=== PATIENT | male | born 1955 | race African-American/Black ===

== ENCOUNTER 2019-09-06 03:19 | Inpatient (IN) | payer MEDICAID ==
[~2019-09-06] VITALS: Ht 335.3 cm; Wt 93.9 kg
[~2019-09-06 03:19] MED LIST: BISA-81 PO; HYDR-519 PO; PHEN100C4 PO
[2019-09-06 04:06] LABS: MEAN CORPUSCULAR HEMOGLOBIN 29.2 pg (28.0-32.0); MEAN CORPUSCULAR VOLUME 90.1 fL (80.0-94.0); MEAN PLATELET VOLUME 8.2 fl (7.4-10.4); PLATELET 651 x1000/uL (130-400); RED BLOOD CELL COUNT 1.44 mill/uL (4.7-6.1); RED CELL DISTRIBUTION WIDTH 16.6 % (11.6-14.6)
[2019-09-06 04:09] LABS: CHLORIDE 89 mEq/L (98-107)
[2019-09-06 04:19] LABS: HEMOGLOBIN. 4.2 g/dL (14.0-18.0)
[2019-09-06] MEDS ORDERED: PANTOPRAZOLE SODIUM 40 MG/VIAL IV NR (04:30)
[2019-09-06] MEDS ORDERED: SODIUM CHLORIDE 0.9% 1000ML BAG (SEPSIS BOLUS) IV NR (04:30)
[2019-09-06] MEDS ORDERED: PIPERACILLIN/TAZOBACTAM 3.375GM/50ML PREMIX IV ONE (04:30)
[2019-09-06 04:32] LABS: INR 1.1; PROTHROMBIN TIME 11.7 sec (9.6-11.0)
[2019-09-06] MEDS ORDERED: PIPERACILLIN/TAZ 3.375G PREMIX 50 ML IV NR (05:00)
[2019-09-06 06:34] LABS: PLATELET ESTIMATE INCREASED
[2019-09-06] MEDS: AZITHROMYCIN 500 MG in DEXT 5% WATER 250 ML IV SCH (07:41)
[2019-09-06] MEDS ORDERED: ACETAMINOPHEN 325MG TABLET PO PRN (08:00)
[2019-09-06] MEDS ORDERED: ONDANSETRON HCL 4MG/2ML INJ IV PRN (08:00)
[2019-09-06] MEDS ORDERED: POTASSIUM CHLORIDE 20MEQ TABLET SR PO SCH (08:00)
[2019-09-06] MEDS: VANCOMYCIN 1 G PREMIX 200 ML IV SCH (08:35)
[2019-09-06] MEDS: SODIUM CHLORIDE 0.9% 1,000 ML IV SCH ×2 (08:36→21:20)
[2019-09-06] MEDS: CEFTRIAXONE 1 G PREMIX 50 ML IV SCH (08:49)
[2019-09-06 09:36] LABS: CLARITY URINE CLOUDY (CLEAR); COLOR URINE YELLOW (YELLOW); KETONES URINE NEGATIVE (NEGATIVE); LEUKOCYTE ESTERASE URINE 3+ (NEGATIVE); NITRITE URINE NEGATIVE (NEGATIVE); OCCULT BLOOD URINE 3+ (NEGATIVE); PROTEIN URINE 1+ (NEGATIVE); SPECIFIC GRAVITY URINE 1.012 (1.005-1.030); UROBILINOGEN URINE 0.2 E.U./dL (0.2-1.0)
[2019-09-06 11:07] LABS: TOTAL IRON BINDING CAPACITY 175 ug/dL (250-450)
[2019-09-06 11:23] LABS: FOLIC ACID (FOLATE) SERUM >20 ng/mL ng/mL (>5.38)
[2019-09-06 11:34] LABS: VITAMIN B12 SERUM 772 pg/mL (211-911)
[2019-09-06] MEDS ORDERED: IPRATROPIUM/ALBUTEROL 0.5-3(2.5)MG/3ML NEB HHN PRN (12:45)
[2019-09-06 13:18] LABS: FERRITIN 3735 ng/mL (22-322)
[2019-09-06 14:01] LABS: BG BASE EXCESS 2.2 mmol/L (-2.0-2.0); BG CARBOXYHEMOGLOBIN 0.4 % (0.5-1.5); BG DEOXYHEMOGLOBIN 0.6 % (0.0-5.0); BG FRACTION INSPIRED OXYGEN 50; BG HCO3 ACT 25.2 mmol/L (22.0-26.0); BG METHEMOGLOBIN 0.1 % (0.0-1.5); BG OXYGEN SATURATION 99.4 % (92.0-98.5); BG OXYHEMOGLOBIN 98.9 % (94.0-97.0); BG PH 7.514 (7.350-7.450); BG PO2 213.1 mmHg (75.0-100.0); BG SAMPLE SITE RIGHT RADIAL; BG TIDAL VOLUME(mL) 500 mL; BG TOTAL HEMOGLOBIN 7.2 g/dL (12.0-18.0); BG VENT MODE VENT - A/C; BG VENT RATE 14 set
[2019-09-06] MEDS: MORPHINE SULFATE 2 MG/ML CPJ (NOT FOR IM USE) IV PRN (15:53)
[2019-09-06] MEDS ORDERED: MORPHINE SULFATE 2 MG/ML CPJ (NOT FOR IM USE) IV SCH (16:00)
[2019-09-06] MEDS: IPRATROPIUM/ALBUTEROL 0.5-3(2.5)MG/3ML NEB HHN SCH (21:24)
[2019-09-07] MEDS: ACETYLCYSTEINE 100MG/ML 10% VIAL 4ML INH SCH ×2 (00:12→17:10)
[2019-09-07] MEDS: IPRATROPIUM/ALBUTEROL 0.5-3(2.5)MG/3ML NEB HHN SCH ×4 (01:48→21:07)
[2019-09-07 02:23] LABS: HEMATOCRIT 31.3 % (42.0-52.0); HEMOGLOBIN 10.6 g/dL (14.0-18.0)
[2019-09-07] MEDS: VANCOMYCIN 1 G PREMIX 200 ML IV SCH (04:30)
[2019-09-07 04:40] LABS: HEMATOCRIT. 28.8 % (42.0-52.0); HEMOGLOBIN. 9.8 g/dL (14.0-18.0); MEAN CORPUSCULAR HEMOGLOBIN 28.3 pg (28.0-32.0); MEAN CORPUSCULAR VOLUME 83.7 fL (80.0-94.0); MEAN PLATELET VOLUME 7.8 fl (7.4-10.4); PLATELET 688 x1000/uL (130-400); RED BLOOD CELL COUNT 3.44 mill/uL (4.7-6.1); RED CELL DISTRIBUTION WIDTH 16.8 % (11.6-14.6)
[2019-09-07 04:45] LABS: CHLORIDE 109 mEq/L (98-107)
[2019-09-07] MEDS: AZITHROMYCIN 500 MG in DEXT 5% WATER 250 ML IV SCH (04:45)
[2019-09-07 04:51] LABS: PHOSPHORUS 2.5 mg/dL (2.5-4.9)
[2019-09-07] MEDS: CEFTRIAXONE 1 G PREMIX 50 ML IV SCH (08:53)
[2019-09-07] MEDS: PANTOPRAZOLE SODIUM 40 MG/VIAL IV SCH (09:00)
[2019-09-07] MEDS: SODIUM CHLORIDE 0.9% 1,000 ML IV SCH (10:34)
[2019-09-07 11:12] LABS: PLATELET ESTIMATE INCREASED
[2019-09-07 14:00] VITALS: BP 149/73
[2019-09-07 14:41] VITALS: BP 149/73
[2019-09-07] MEDS ORDERED: IRON SUCROSE COMPLEX 100 MG/5 ML ML IV SCH (15:00)
[2019-09-07 16:23] VITALS: BP 134/65
[2019-09-07] MEDS: PIPERACILLIN/TAZOBACTAM 3.375 G in DEXT 5% WATER 100 ML IV SCH ×2 (16:45→21:26)
[2019-09-07 17:53] VITALS: BP 158/81
[2019-09-07] MEDS: VANCOMYCIN 750 MG PREMIX 150 ML IV SCH (18:09)
[2019-09-07 20:00] VITALS: BP 156/80
[2019-09-07 22:00] VITALS: BP 147/79
[2019-09-08] VITALS (12 sets, daily range): BP systolic 144–167; BP diastolic 69–101
[2019-09-08] MEDS: SODIUM CHLORIDE 0.9% 1,000 ML IV SCH
[2019-09-08] MEDS: IPRATROPIUM/ALBUTEROL 0.5-3(2.5)MG/3ML NEB HHN SCH ×6 (00:12→20:51)
[2019-09-08] MEDS: VANCOMYCIN 750 MG PREMIX 150 ML IV SCH ×3 (01:13→17:53)
[2019-09-08] MEDS: PIPERACILLIN/TAZOBACTAM 3.375 G in DEXT 5% WATER 100 ML IV SCH ×4 (02:58→23:18)
[2019-09-08 05:51] LABS: CHLORIDE 115 mEq/L (98-107)
[2019-09-08 06:04] LABS: PHOSPHORUS 2.6 mg/dL (2.5-4.9)
[2019-09-08 06:25] LABS: HEMATOCRIT. 29.9 % (42.0-52.0); HEMOGLOBIN. 10.2 g/dL (14.0-18.0); MEAN CORPUSCULAR VOLUME 85.4 fL (80.0-94.0); MEAN PLATELET VOLUME 7.7 fl (7.4-10.4); PLATELET 718 x1000/uL (130-400); RED CELL DISTRIBUTION WIDTH 17.3 % (11.6-14.6)
[2019-09-08] MEDS ORDERED: CEFTRIAXONE 1 G PREMIX 50 ML IV SCH (09:00)
[2019-09-08] MEDS: ACETYLCYSTEINE 100MG/ML 10% VIAL 4ML INH SCH ×2 (09:16→14:11)
[2019-09-08] MEDS: PANTOPRAZOLE SODIUM 40 MG/VIAL IV SCH (11:46)
[2019-09-08 22:53] LABS: PLATELET ESTIMATE MARKEDLY INCREASED
[2019-09-09] VITALS (11 sets, daily range): BP systolic 137–170; BP diastolic 76–97
[2019-09-09] MEDS: IPRATROPIUM/ALBUTEROL 0.5-3(2.5)MG/3ML NEB HHN SCH ×3 (01:41→20:46)
[2019-09-09] MEDS: ACETYLCYSTEINE 100MG/ML 10% VIAL 4ML INH SCH ×2 (01:42→17:01)
[2019-09-09] MEDS: VANCOMYCIN 750 MG PREMIX 150 ML IV SCH (01:44)
[2019-09-09] MEDS: PIPERACILLIN/TAZOBACTAM 3.375 G in DEXT 5% WATER 100 ML IV SCH ×4 (04:00→22:00)
[2019-09-09 06:10] LABS: HEMATOCRIT. 29.9 % (42.0-52.0); HEMOGLOBIN. 9.9 g/dL (14.0-18.0); MEAN CORPUSCULAR HEMOGLOBIN 28.6 pg (28.0-32.0); MEAN CORPUSCULAR VOLUME 86.6 fL (80.0-94.0); MEAN PLATELET VOLUME 7.7 fl (7.4-10.4); PLATELET 733 x1000/uL (130-400); RED BLOOD CELL COUNT 3.45 mill/uL (4.7-6.1); RED CELL DISTRIBUTION WIDTH 17.1 % (11.6-14.6)
[2019-09-09 06:23] LABS: CHLORIDE 120 mEq/L (98-107)
[2019-09-09 06:28] LABS: PHOSPHORUS 2.7 mg/dL (2.5-4.9)
[2019-09-09 07:56] LABS: VANCOMYCIN TROUGH 68.4 ug/mL (5.0-10.0)
[2019-09-09] MEDS: ZINC SULFATE 220 MG ( 50 ) CAPSULE PO SCH (09:41)
[2019-09-09] MEDS: DEXTROSE 5% WATER 1,000 ML IV SCH (09:41)
[2019-09-09] MEDS: FOLIC ACID 1MG TABLET PO SCH (09:41)
[2019-09-09] MEDS: PANTOPRAZOLE SODIUM 40 MG/VIAL IV SCH (09:41)
[2019-09-09] MEDS: ASCORBIC ACID 500 MG TABLET PO SCH (09:41)
[2019-09-09] MEDS: THIAMINE HCL 100MG TABLET PO SCH (09:41)
[2019-09-09 10:42] LABS: PLATELET ESTIMATE INCREASED
[2019-09-10] VITALS (12 sets, daily range): BP systolic 133–167; BP diastolic 81–114
[2019-09-10] MEDS: ACETYLCYSTEINE 100MG/ML 10% VIAL 4ML INH SCH ×3 (00:46→16:00)
[2019-09-10] MEDS: IPRATROPIUM/ALBUTEROL 0.5-3(2.5)MG/3ML NEB HHN SCH ×6 (00:46→20:10)
[2019-09-10] MEDS: DEXTROSE 5% WATER 1,000 ML IV SCH ×3 (01:33→17:19)
[2019-09-10] MEDS: MORPHINE SULFATE 2 MG/ML CPJ (NOT FOR IM USE) IV PRN (01:34)
[2019-09-10] MEDS: PIPERACILLIN/TAZOBACTAM 3.375 G in DEXT 5% WATER 100 ML IV SCH ×3 (03:02→16:52)
[2019-09-10 05:32] LABS: CHLORIDE 115 mEq/L (98-107)
[2019-09-10 05:39] LABS: HEMATOCRIT. 31.5 % (42.0-52.0); HEMOGLOBIN. 10.1 g/dL (14.0-18.0); MEAN CORPUSCULAR HEMOGLOBIN 28.2 pg (28.0-32.0); MEAN CORPUSCULAR VOLUME 87.9 fL (80.0-94.0); MEAN PLATELET VOLUME 7.7 fl (7.4-10.4); PHOSPHORUS 2.7 mg/dL (2.5-4.9); PLATELET 687 x1000/uL (130-400); RED BLOOD CELL COUNT 3.58 mill/uL (4.7-6.1); RED CELL DISTRIBUTION WIDTH 17.5 % (11.6-14.6)
[2019-09-10] MEDS: FOLIC ACID 1MG TABLET PO SCH (08:19)
[2019-09-10] MEDS: THIAMINE HCL 100MG TABLET PO SCH (08:19)
[2019-09-10] MEDS: PANTOPRAZOLE SODIUM 40 MG/VIAL IV SCH (08:19)
[2019-09-10] MEDS: ASCORBIC ACID 500 MG TABLET PO SCH (08:19)
[2019-09-10] MEDS: ZINC SULFATE 220 MG ( 50 ) CAPSULE PO SCH (08:19)
[2019-09-10 08:40] LABS: BG BASE EXCESS 1.1 mmol/L (-2.0-2.0); BG CARBOXYHEMOGLOBIN 0.1 % (0.5-1.5); BG DEOXYHEMOGLOBIN 1.6 % (0.0-5.0); BG FRACTION INSPIRED OXYGEN 35; BG HCO3 ACT 24.4 mmol/L (22.0-26.0); BG METHEMOGLOBIN 0.2 % (0.0-1.5); BG OXYGEN SATURATION 98.4 % (92.0-98.5); BG OXYHEMOGLOBIN 98.1 % (94.0-97.0); BG PCO2 33.5 mmHg (35.0-45.0); BG PO2 114.2 mmHg (75.0-100.0); BG SAMPLE SITE RIGHT RADIAL; BG TIDAL VOLUME(mL) 500 mL; BG TOTAL HEMOGLOBIN 9.1 g/dL (12.0-18.0); BG VENT MODE VENT - A/C; BG VENT RATE 14 set
[2019-09-10 10:50] LABS: PLATELET ESTIMATE INCREASED
[2019-09-10] MEDS ORDERED: POTASSIUM CHLORIDE 20MEQ TABLET SR PO NR (11:45)
[2019-09-10] MEDS: VANCOMYCIN HCL 1000 MG/20 ML ORAL GT SCH (18:21)
[2019-09-11] VITALS (12 sets, daily range): BP systolic 114–146; BP diastolic 30–91
[2019-09-11] MEDS: IPRATROPIUM/ALBUTEROL 0.5-3(2.5)MG/3ML NEB HHN SCH ×6 (00:25→20:48)
[2019-09-11] MEDS: ACETYLCYSTEINE 100MG/ML 10% VIAL 4ML INH SCH ×3 (00:25→16:12)
[2019-09-11] MEDS: VANCOMYCIN HCL 1000 MG/20 ML ORAL GT SCH ×4 (00:42→17:47)
[2019-09-11] MEDS: PIPERACILLIN/TAZOBACTAM 3.375 G in DEXT 5% WATER 100 ML IV SCH ×4 (00:42→16:13)
[2019-09-11] MEDS: DEXTROSE 5% WATER 1,000 ML IV SCH (02:11)
[2019-09-11 07:09] LABS: HEMATOCRIT. 25.8 % (42.0-52.0); HEMOGLOBIN. 8.7 g/dL (14.0-18.0); MEAN CORPUSCULAR HEMOGLOBIN 29.1 pg (28.0-32.0); MEAN CORPUSCULAR VOLUME 86.6 fL (80.0-94.0); MEAN PLATELET VOLUME 7.9 fl (7.4-10.4); PLATELET 618 x1000/uL (130-400); RED BLOOD CELL COUNT 2.97 mill/uL (4.7-6.1); RED CELL DISTRIBUTION WIDTH 16.8 % (11.6-14.6)
[2019-09-11 07:50] LABS: CHLORIDE 109 mEq/L (98-107)
[2019-09-11 08:04] LABS: PHOSPHORUS 2.4 mg/dL (2.5-4.9)
[2019-09-11] MEDS: THIAMINE HCL 100MG TABLET PO SCH (08:38)
[2019-09-11] MEDS: ASCORBIC ACID 500 MG TABLET PO SCH (08:38)
[2019-09-11] MEDS: PANTOPRAZOLE SODIUM 40 MG/VIAL IV SCH (08:38)
[2019-09-11] MEDS: FOLIC ACID 1MG TABLET PO SCH (08:38)
[2019-09-11] MEDS: ZINC SULFATE 220 MG ( 50 ) CAPSULE PO SCH (08:38)
[2019-09-11] MEDS ORDERED: POTASSIUM CHLORIDE 20MEQ TABLET SR PO SCH (11:00)
[2019-09-11] MEDS ORDERED: POTASSIUM-SODIUM PHOSPHATE POWDER PACKET PO NR (12:45)
[2019-09-11 13:43] LABS: PLATELET ESTIMATE INCREASED
[2019-09-11] MEDS: POTASSIUM CHLORIDE INJ 40 MEQ in DEXTROSE 5% WATER 1,000 ML IV SCH (14:38)
[2019-09-11] MEDS: POTASSIUM-SODIUM PHOSPHATE POWDER PACKET PO SCH (16:13)
[2019-09-11] MEDS: CEFEPIME 1,000 MG in DEXTROSE 5% WATER 50 ML IV SCH (17:44)
[2019-09-12] VITALS (12 sets, daily range): BP systolic 90–156; BP diastolic 49–100
[2019-09-12] MEDS: ACETYLCYSTEINE 100MG/ML 10% VIAL 4ML INH SCH ×3 (00:11→14:00)
[2019-09-12] MEDS: IPRATROPIUM/ALBUTEROL 0.5-3(2.5)MG/3ML NEB HHN SCH ×6 (00:11→20:44)
[2019-09-12] MEDS: VANCOMYCIN HCL 1000 MG/20 ML ORAL GT SCH ×4 (00:33→17:23)
[2019-09-12 06:13] LABS: HEMATOCRIT. 26.6 % (42.0-52.0); HEMOGLOBIN. 8.7 g/dL (14.0-18.0); MEAN CORPUSCULAR HEMOGLOBIN 28.3 pg (28.0-32.0); MEAN CORPUSCULAR VOLUME 87.1 fL (80.0-94.0); MEAN PLATELET VOLUME 7.8 fl (7.4-10.4); PLATELET 558 x1000/uL (130-400); RED BLOOD CELL COUNT 3.06 mill/uL (4.7-6.1); RED CELL DISTRIBUTION WIDTH 16.7 % (11.6-14.6)
[2019-09-12] MEDS: CEFEPIME 1,000 MG in DEXTROSE 5% WATER 50 ML IV SCH ×2 (06:29→17:21)
[2019-09-12 06:43] LABS: CHLORIDE 107 mEq/L (98-107)
[2019-09-12 06:56] LABS: PHOSPHORUS 1.9 mg/dL (2.5-4.9)
[2019-09-12] MEDS: POTASSIUM CHLORIDE INJ 40 MEQ in DEXTROSE 5% WATER 1,000 ML IV SCH (08:00)
[2019-09-12] MEDS: POTASSIUM-SODIUM PHOSPHATE POWDER PACKET PO SCH (08:43)
[2019-09-12] MEDS: THIAMINE HCL 100MG TABLET PO SCH (08:43)
[2019-09-12] MEDS: PANTOPRAZOLE SODIUM 40 MG/VIAL IV SCH (08:43)
[2019-09-12] MEDS: ASCORBIC ACID 500 MG TABLET PO SCH (08:44)
[2019-09-12] MEDS: FOLIC ACID 1MG TABLET PO SCH (08:44)
[2019-09-12] MEDS: ZINC SULFATE 220 MG ( 50 ) CAPSULE PO SCH (08:44)
[2019-09-12 14:18] LABS: PLATELET ESTIMATE INCREASED
[2019-09-12] MEDS ORDERED: SODIUM PHOS,M-BASIC-D-BASIC 20 MM in DEXT 5% WATER 243.3333 ML IV SCH (15:00)
[2019-09-13] VITALS (12 sets, daily range): BP systolic 123–158; BP diastolic 65–94
[2019-09-13] MEDS: POTASSIUM CHLORIDE INJ 40 MEQ in DEXTROSE 5% WATER 1,000 ML IV SCH (00:12)
[2019-09-13] MEDS: VANCOMYCIN HCL 1000 MG/20 ML ORAL GT SCH ×5 (00:12→23:39)
[2019-09-13] MEDS: IPRATROPIUM/ALBUTEROL 0.5-3(2.5)MG/3ML NEB HHN SCH ×6 (00:54→20:23)
[2019-09-13] MEDS: CEFEPIME 1,000 MG in DEXTROSE 5% WATER 50 ML IV SCH ×2 (06:08→18:00)
[2019-09-13 06:19] LABS: HEMATOCRIT. 27.6 % (42.0-52.0); HEMOGLOBIN. 9.1 g/dL (14.0-18.0); MEAN CORPUSCULAR HEMOGLOBIN 28.8 pg (28.0-32.0); MEAN CORPUSCULAR VOLUME 87.7 fL (80.0-94.0); MEAN PLATELET VOLUME 8.6 fl (7.4-10.4); PLATELET 411 x1000/uL (130-400); RED BLOOD CELL COUNT 3.15 mill/uL (4.7-6.1); RED CELL DISTRIBUTION WIDTH 16.4 % (11.6-14.6)
[2019-09-13 07:42] LABS: CHLORIDE 109 mEq/L (98-107)
[2019-09-13 07:49] LABS: PHOSPHORUS 2.2 mg/dL (2.5-4.9)
[2019-09-13] MEDS: FOLIC ACID 1MG TABLET PO SCH (08:31)
[2019-09-13] MEDS: ASCORBIC ACID 500 MG TABLET PO SCH (08:31)
[2019-09-13] MEDS: ZINC SULFATE 220 MG ( 50 ) CAPSULE PO SCH (08:31)
[2019-09-13] MEDS: PANTOPRAZOLE SODIUM 40 MG/VIAL IV SCH (08:31)
[2019-09-13] MEDS: THIAMINE HCL 100MG TABLET PO SCH (08:31)
[2019-09-13 09:55] LABS: PLATELET ESTIMATE INCREASED
[2019-09-13] MEDS ORDERED: MAGNESIUM 2 G PREMIX 50 ML IV NR (13:00)
[2019-09-13] MEDS ORDERED: SODIUM PHOS,M-BASIC-D-BASIC 30 MM in DEXT 5% WATER 500 ML IV NR (13:00)
[2019-09-13 20:16] LABS: CLARITY URINE CLOUDY (CLEAR); COLOR URINE YELLOW (YELLOW); KETONES URINE NEGATIVE (NEGATIVE); LEUKOCYTE ESTERASE URINE 3+ (NEGATIVE); NITRITE URINE NEGATIVE (NEGATIVE); OCCULT BLOOD URINE 1+ (NEGATIVE); PROTEIN URINE 1+ (NEGATIVE); SPECIFIC GRAVITY URINE 1.009 (1.005-1.030); UROBILINOGEN URINE 0.2 E.U./dL (0.2-1.0)
[2019-09-13] MEDS: DEXTROSE 5% WATER 1,000 ML IV SCH (20:35)
[2019-09-14] VITALS (12 sets, daily range): BP systolic 112–154; BP diastolic 53–92
[2019-09-14] MEDS: IPRATROPIUM/ALBUTEROL 0.5-3(2.5)MG/3ML NEB HHN SCH ×5 (00:05→20:30)
[2019-09-14] MEDS: CEFEPIME 1,000 MG in DEXTROSE 5% WATER 50 ML IV SCH ×2 (05:11→18:30)
[2019-09-14] MEDS: VANCOMYCIN HCL 1000 MG/20 ML ORAL GT SCH ×4 (05:12→23:06)
[2019-09-14 06:48] LABS: CHLORIDE 106 mEq/L (98-107)
[2019-09-14 06:53] LABS: PHOSPHORUS 3.7 mg/dL (2.5-4.9)
[2019-09-14 06:58] LABS: HEMATOCRIT. 27.7 % (42.0-52.0); HEMOGLOBIN. 9.1 g/dL (14.0-18.0); MEAN CORPUSCULAR HEMOGLOBIN 28.2 pg (28.0-32.0); MEAN CORPUSCULAR VOLUME 85.9 fL (80.0-94.0); MEAN PLATELET VOLUME 8.7 fl (7.4-10.4); PLATELET 423 x1000/uL (130-400); RED BLOOD CELL COUNT 3.23 mill/uL (4.7-6.1); RED CELL DISTRIBUTION WIDTH 16.5 % (11.6-14.6)
[2019-09-14] MEDS: PANTOPRAZOLE SODIUM 40 MG/VIAL IV SCH (08:42)
[2019-09-14] MEDS: FOLIC ACID 1MG TABLET PO SCH (08:42)
[2019-09-14] MEDS: ZINC SULFATE 220 MG ( 50 ) CAPSULE PO SCH (08:42)
[2019-09-14] MEDS: THIAMINE HCL 100MG TABLET PO SCH (08:42)
[2019-09-14] MEDS: ASCORBIC ACID 500 MG TABLET PO SCH (08:42)
[2019-09-14 10:19] LABS: PLATELET ESTIMATE SLIGHTLY INCREASED
[2019-09-14] MEDS: DEXTROSE 5% WATER 1,000 ML IV SCH (11:41)
[2019-09-14] MEDS ORDERED: SODIUM POLYSTYRENE SULFONATE 15 G/60 ML BOT PEG NR (18:00)
[2019-09-15] VITALS (11 sets, daily range): BP systolic 114–152; BP diastolic 44–97
[2019-09-15] MEDS: IPRATROPIUM/ALBUTEROL 0.5-3(2.5)MG/3ML NEB HHN SCH ×5 (00:19→20:19)
[2019-09-15] MEDS: VANCOMYCIN HCL 1000 MG/20 ML ORAL GT SCH ×4 (06:20→23:16)
[2019-09-15 07:07] LABS: CHLORIDE 106 mEq/L (98-107)
[2019-09-15 07:11] LABS: HEMATOCRIT. 27.5 % (42.0-52.0); MEAN CORPUSCULAR HEMOGLOBIN 28.3 pg (28.0-32.0); MEAN CORPUSCULAR VOLUME 86.9 fL (80.0-94.0); MEAN PLATELET VOLUME 8.5 fl (7.4-10.4); PLATELET 428 x1000/uL (130-400); RED BLOOD CELL COUNT 3.17 mill/uL (4.7-6.1); RED CELL DISTRIBUTION WIDTH 16.4 % (11.6-14.6)
[2019-09-15] MEDS: PANTOPRAZOLE SODIUM 40 MG/VIAL IV SCH (08:06)
[2019-09-15] MEDS: FOLIC ACID 1MG TABLET PO SCH (08:06)
[2019-09-15] MEDS: ASCORBIC ACID 500 MG TABLET PO SCH (08:06)
[2019-09-15] MEDS: ZINC SULFATE 220 MG ( 50 ) CAPSULE PO SCH (08:07)
[2019-09-15] MEDS: THIAMINE HCL 100MG TABLET PO SCH (08:08)
[2019-09-15 13:34] LABS: NUCLEATED RED BLOOD CELLS 1 /100 WBC; PLATELET ESTIMATE INCREASED
[2019-09-16] VITALS (9 sets, daily range): BP systolic 124–142; BP diastolic 67–92
[2019-09-16] MEDS: IPRATROPIUM/ALBUTEROL 0.5-3(2.5)MG/3ML NEB HHN SCH ×5 (00:09→15:54)
[2019-09-16 05:07] LABS: CHLORIDE 108 mEq/L (98-107)
[2019-09-16 05:14] LABS: PHOSPHORUS 2.8 mg/dL (2.5-4.9)
[2019-09-16] MEDS: VANCOMYCIN HCL 1000 MG/20 ML ORAL GT SCH ×3 (05:38→18:40)
[2019-09-16 06:44] LABS: BASOPHILS % 0.5 % (0.0-2.0); EOSINOPHILS % 0.6 % (0.0-5.0); HEMATOCRIT. 24.5 % (42.0-52.0); HEMOGLOBIN. 7.9 g/dL (14.0-18.0); LYMPHOCYTES % 7.3 % (20.0-50.0); MEAN PLATELET VOLUME 8.6 fl (7.4-10.4); MONOCYTES % 10.5 % (2.0-8.0); NEUTROPHILS % 81.1 % (40.0-76.0); PLATELET 367 x1000/uL (130-400); RED BLOOD CELL COUNT 2.82 mill/uL (4.7-6.1); RED CELL DISTRIBUTION WIDTH 16.4 % (11.6-14.6)
[2019-09-16] MEDS ORDERED: SODIUM POLYSTYRENE SULFONATE 15 G/60 ML BOT PO ONE (06:45)
[2019-09-16] MEDS: PANTOPRAZOLE SODIUM 40 MG/VIAL IV SCH (08:42)
[2019-09-16] MEDS: THIAMINE HCL 100MG TABLET PO SCH (08:42)
[2019-09-16] MEDS: ZINC SULFATE 220 MG ( 50 ) CAPSULE PO SCH (08:42)
[2019-09-16] MEDS: FOLIC ACID 1MG TABLET PO SCH (08:42)
[2019-09-16] MEDS: ASCORBIC ACID 500 MG TABLET PO SCH (08:42)
[2019-09-16] MEDS ORDERED: MAGNESIUM 2 G PREMIX 50 ML IV SCH (13:00)
== END 2019-09-16 18:50 | DRG 720 ==
LOC: ER 03:19 → MICUSO 22:24 → 5EST 09-07 12:48
PROVIDERS: ADMIT Internal Medicine; ATTEND Internal Medicine
PROC: 5A1955Z Respiratory Ventilation, Greater than 96 Consecutive Hours (ICD-10-PCS; principal; 2019-09-06)
PROC: 30233N1 Transfusion of Nonautologous Red Blood Cells into Peripheral Vein, Percutaneous Approach (ICD-10-PCS; 2019-09-06)
DX: A41.89 Other specified sepsis (principal); N17.0 Acute kidney failure with tubular necrosis; J96.20 Acute and chronic respiratory failure, unspecified whether with hypoxia or hypercapnia; E43 Unspecified severe protein-calorie malnutrition; G93.40 Encephalopathy, unspecified; J18.9 Pneumonia, unspecified organism; E87.0 Hyperosmolality and hypernatremia; E11.22 Type 2 diabetes mellitus with diabetic chronic kidney disease; E87.2 Acidosis; N39.0 Urinary tract infection, site not specified; E87.8 Other disorders of electrolyte and fluid balance, not elsewhere classified; N18.3 Chronic kidney disease, stage 3 (moderate); E87.6 Hypokalemia; G40.909 Epilepsy, unspecified, not intractable, without status epilepticus; I51.7 Cardiomegaly; D72.821 Monocytosis (symptomatic); A04.72 Enterocolitis due to Clostridium difficile, not specified as recurrent; D63.8 Anemia in other chronic diseases classified elsewhere; E78.5 Hyperlipidemia, unspecified; E83.39 Other disorders of phosphorus metabolism; E87.1 Hypo-osmolality and hyponatremia; E87.5 Hyperkalemia; I12.9 Hypertensive chronic kidney disease with stage 1 through stage 4 chronic kidney disease, or unspecified chronic kidney disease; L85.3 Xerosis cutis; M24.50 Contracture, unspecified joint; R13.10 Dysphagia, unspecified; Z66 Do not resuscitate; L89.159 Pressure ulcer of sacral region, unspecified stage; L89.223 Pressure ulcer of left hip, stage 3; L89.213 Pressure ulcer of right hip, stage 3; L89.894 Pressure ulcer of other site, stage 4; Z20.828 Contact with and (suspected) exposure to other viral communicable diseases; E11.51 Type 2 diabetes mellitus with diabetic peripheral angiopathy without gangrene; D47.3 Essential (hemorrhagic) thrombocythemia; Z82.49 Family history of ischemic heart disease and other diseases of the circulatory system; Z83.3 Family history of diabetes mellitus; I69.320 Aphasia following cerebral infarction; Z87.440 Personal history of urinary (tract) infections; Z87.891 Personal history of nicotine dependence; Z93.1 Gastrostomy status; Z99.11 Dependence on respirator [ventilator] status; Z93.0 Tracheostomy status
CPT/HCPCS: 36415; 36600; 71045; 80048; 80053; 80202; 81003; 82040; 82140; 82270; 82375; 82533; 82607; 82728; 82746; 82805; 83036; 83540; 83550; 83605; 83735; 84100; 84134; 84145; 84443; 84484; 85014; 85018; 85025; 86850; 86900; 86920; 87070; 87077; 87106; 87186; 87493; 93005; 93923; 94002; 94003; 94640; 96365; 99291; C9113; J0456; J0692; J0696; J2270; J2405; J2543; J3370; J3475; J3480; J3490; J7060; J7070; J7608; P9016; C9803-CS; U0003-CS

== ENCOUNTER 2021-06-29 01:54 | Emergency (ER) | payer MEDICAID ==
[~2021-06-29] VITALS: Ht 182.9 cm; Wt 91.0 kg
[2021-06-29 02:30] VITALS: BP 100/39
[2021-06-29] MEDS ORDERED: SODIUM CHLORIDE 0.9% 1,000 ML IV ONE (02:30)
[2021-06-29] MEDS ORDERED: ACETAMINOPHEN 160MG/5ML UDC GT ONE (02:45)
[2021-06-29 04:03] LABS: HEMATOCRIT 50.7 % (42.0-52.0); HEMOGLOBIN 10.5 g/dL (14.0-18.0); MEAN CORPUSCULAR HEMOGLOBIN 27.9 pg (28.0-32.0); MEAN CORPUSCULAR VOLUME 135.2 fL (80.0-94.0); PLATELET 133 x1000/uL (130-400); RED BLOOD CELL COUNT 3.75 mill/uL (4.7-6.1); RED CELL DISTRIBUTION WIDTH 23.1 % (11.6-14.6)
[2021-06-29 11:03] LABS: BETA HYDROXYBUTYRATE 1.4 mMol/L (0.0-0.3)
== END 2021-06-29 06:15 ==
LOC: ER 01:54
DX: I46.9 Cardiac arrest, cause unspecified (principal); J96.90 Respiratory failure, unspecified, unspecified whether with hypoxia or hypercapnia; E78.00 Pure hypercholesterolemia, unspecified; I10 Essential (primary) hypertension; E11.9 Type 2 diabetes mellitus without complications; Z86.73 Personal history of transient ischemic attack (TIA), and cerebral infarction without residual deficits; Z86.59 Personal history of other mental and behavioral disorders; Z93.0 Tracheostomy status
CPT/HCPCS: 36415; 51702; 80048; 82010; 82962; 84145; 85027; 99285; J7030; Z7610